=== PATIENT | male | born 1945 | race Caucasian/White ===

== ENCOUNTER 2019-11-26 05:52 | Day surgery (SDC) | payer MEDICARE ==
[~2019-11-26] VITALS: Ht 185.4 cm; Wt 98.0 kg
[2019-11-26] MEDS ORDERED: LACTATED RINGERS 1,000 ML IV SCH (06:28)
[2019-11-26] MEDS ORDERED: MULT-658 PO (06:29)
[2019-11-26] MEDS ORDERED: LIDOCAINE-MPF 1%, 2ML INFIL ONE (06:30)
[2019-11-26] MEDS ORDERED: AMLO-150 PO (06:32)
[2019-11-26] MEDS ORDERED: ALLO100T30 PO (06:32)
[2019-11-26] MEDS ORDERED: CLON0.1T22 PO (06:32)
[2019-11-26] MEDS ORDERED: 5-HY100C3 PO (06:32)
[2019-11-26] MEDS ORDERED: MELA5TAB14 PO (06:32)
[2019-11-26] MEDS ORDERED: VITA1CAP7 PO (06:32)
[2019-11-26] MEDS ORDERED: CHOL40002 PO (06:32)
[2019-11-26] MEDS ORDERED: RIVA15TA PO (06:32)
[2019-11-26 06:35] VITALS: BP 134/88
[2019-11-26] MEDS ORDERED: FENTANYL PF 250 MCG/5ML ONE (07:10)
[2019-11-26] MEDS ORDERED: MIDAZOLAM 1 MG/ML, 2ML ONE (07:10)
[2019-11-26] MEDS ORDERED: PROPOFOL 10 MG/ML, 20ML ONE (07:10)
[2019-11-26 07:11] LABS: MICROSCOPIC INDICATED
[2019-11-26 07:20] LABS: ALANINE AMINOTRANSFERASE 25 U/L (12-78); ANION GAP 8 mmol/L (5-15); CALCIUM 8.7 mg/dL (8.5-10.1); CHLORIDE 115 mmol/L (98-107); CREATININE 1.27 mg/dL (0.7-1.3); INTERNATIONAL NORMALIZED RATIO 0.96 (0.93-1.1); PROTHROMBIN TIME 10.2 Seconds (9.6-11.5)
[2019-11-26 07:23] LABS: ALKALINE PHOSPHATASE 54 U/L (45-117); BILIRUBIN,TOTAL 0.7 mg/dL (0.2-1.0); TOTAL PROTEIN 7.8 g/dL (6.4-8.2)
[2019-11-26] MEDS ORDERED: CEFAZOLIN 1,000 MG ONE ×2 (07:28→07:37)
[2019-11-26] MEDS ORDERED: DEXAMETHASONE 4 MG/ML, 1ML ONE (07:36)
[2019-11-26] MEDS ORDERED: EPHEDRINE 50 MG/ML, 1ML ONE (07:39)
[2019-11-26 07:46] LABS: CULTURE INDICATED? NO
[2019-11-26 07:50] LABS: BASOPHILS # (AUTO) 0.01 x10^3/uL (0-0.1); BASOPHILS % (AUTO) 0 % (0-1); EOSINOPHILS # (AUTO) 0.05 x10^3/uL (0-0.4); EOSINOPHILS % (AUTO) 1 % (1-7); LYMPHOCYTES # (AUTO) 2.04 x10^3/uL (1-3.4); LYMPHOCYTES % (AUTO) 44 % (22-44); MD NO; MEAN CORPUSCULAR HEMOGLOBIN 33.2 pg (27.5-34.5); MEAN CORPUSCULAR HGB CONC 34.7 g/dL (33.2-36.2); MEAN CORPUSCULAR VOLUME 95.9 fL (81-97); MEAN PLATELET VOLUME 7.9 fL (7.4-10.4); MONOCYTES # (AUTO) 0.46 x10^3/uL (0.2-0.8); MONOCYTES % (AUTO) 10 % (2-9); NEUTROPHILS # (AUTO) 2.07 x10^3/uL (1.8-6.8); NEUTROPHILS % (AUTO) 45 % (42-75); PLATELET COUNT 184 x10^3/uL (130-400); RED BLOOD COUNT 4.44 x10^6/uL (4.38-5.82); RED CELL DISTRIBUTION WIDTH 13.5 % (9.4-14.8)
[2019-11-26] MEDS ORDERED: ACETAMINOPHEN 325 MG TABLET PO PRN (08:00)
[2019-11-26] MEDS ORDERED: hydrALAzine 20 MG/ML, 1ML IV PRN (08:00)
[2019-11-26] MEDS ORDERED: PROMETHAZINE 25 MG/ML, 1ML IV PRN (08:00)
[2019-11-26] MEDS ORDERED: OXYcodone 5 MG/5 ML ORAL.SOL UDC PO PRN (08:00)
[2019-11-26] MEDS ORDERED: ONDANSETRON 2MG/ML, 2ML IV PRN (08:00)
[2019-11-26] MEDS ORDERED: HYDROmorphone 2 MG/ML, 1ML IVPush PRN (08:00)
[2019-11-26] MEDS ORDERED: LABETALOL 5MG/ML, 20ML IV PRN (08:00)
[2019-11-26] MEDS ORDERED: MEPERIDINE/PF 25MG/ML,1ML IVPush PRN (08:00)
[2019-11-26] MEDS ORDERED: FENTANYL PF 100 MCG/2ML IV PRN (08:00)
[2019-11-26] MEDS ORDERED: ONDANSETRON 2MG/ML, 2ML ONE (08:54)
== END 2019-11-26 13:30 | disposition home or self-care (01) ==
LOC: OUT 05:52
PROVIDERS: ATTEND Urology
DX: N20.0 Calculus of kidney (principal); N40.1 Benign prostatic hyperplasia with lower urinary tract symptoms; N13.8 Other obstructive and reflux uropathy; Z79.01 Long term (current) use of anticoagulants; Z79.891 Long term (current) use of opiate analgesic; Z79.899 Other long term (current) drug therapy; Z86.711 Personal history of pulmonary embolism; Z86.718 Personal history of other venous thrombosis and embolism
CPT/HCPCS: 36415; 50590; 80053; 81001; 85025; 85610; 85730; 93005; J0690; J1100; J2250; J2405; J2704; J3010; J7120